=== PATIENT | male | born 1950 | race Caucasian/White ===

== ENCOUNTER 2020-01-13 11:01 | Emergency (ER) | payer OTHER, MEDICARE, SELFPAY ==
--- NOTE | ~2020-01-13 | XR_ITS ---
EXAMINATION: XR ribs RT 2V w CXR 2V DATE: 01/13/2020 12:10 INDICATION: Right rib pain. Fall. TECHNIQUE: Frontal and lateral views of the chest on 4 radiographs and 3 views of the right ribs were obtained. COMPARISON: None. FINDINGS: CHEST TWO VIEWS: The chest demonstrates clear lungs without pneumonia, pleural effusion, or pneumotho rax. The heart size is normal. There are prominent paracardial fat pads. RIGHT RIBS: There is no rib fracture. IMPRESSION: 1. No rib fracture. Reviewed, dictated and finalized at location A. IMPRESSION: 1. No rib fracture.
--- NOTE | 2020-01-13 11:28 | ED.GENADULT ---
HPI - General Adult General Chief complaint: Fall Stated complaint: fell right arm /rib pain Time Seen by Provider: 01/13/20 11:44 Source: patient Mode of arrival: ambulatory Limitations: no limitations History of Present Illness HPI narrative: 69-year-old male patient presents to the [facility] with complaints of right-sided rib pain after a fall yesterday. [place] that he normally uses a cane to ambulate and states that he was reaching down and accidentally fell onto his right side. Patient denies falling on any types of rocks or logs which is hit the hard ground. Denies hitting his head or loss of consciousness. Patient states he has been taking ibuprofen for his pain. Patient does have history of type 2 diabetes. Patient states it does hurt worse when taking a deep breath in. Patient denies any smoking or lung disease. Related Data Allergies Allergy/AdvReac Type Severity Reaction Status Date / Time codeine AdvReac Nausea and Verified 01/13/20 11:55 Vomiting Review of Systems Review of Systems: Narrative: CONSTITUTIONAL: Denies fever, chills, or sweats. EYES: Denies visual changes, redness, or discharge. ENT: Denies rhinorrhea, congestion, sore throat, or otalgia. CARDIOVASCULAR: Denies chest pain, palpitations, or edema. RESPIRATORY: Denies cough or dyspnea. Positive right-sided rib pain with pain on inspiration GASTROINTESTINAL: Denies abdominal pain, nausea, vomiting, or diarrhea. GENITOURINARY: Denies dysuria or hematuria. SKIN: Denies rash or itching. MUSCULOSKELETAL: Denies back pain, joint pain, or myalgia. NEUROLOGIC: Denies headache, numbness, or weakness. PSYCHIATRIC: Denies anxiety or depression. PMFSH Past Medical History Medical History (Updated 01/13/20 @ 12:23 by JOHN Sexton) Type 2 diabetes mellitus Social History Social History Gender identity (if verbalized by the patient): Male Comments At the time of my signature I agree with nursing past medical history, surgical, social, and family history. There is no relevant family history pertinent to the presenting complaint. Exam Narrative: Exam Narrative: GENERAL: Well-appearing, well-nourished, and in no acute distress. HEAD: Normocephalic, atraumatic. EYES: PERRLA and EOMI. ENT: Nares clear, no rhinorrhea or epistaxis. Mucous membranes moist. NECK: Supple. No lymphadenopathy CHEST: Clear to auscultation. No respiratory distress. No ecchymosis or notable trauma noted to the skin of the right side of the chest. Patient does have tenderness on palpation to the 6/7 rib area on the right side under the right breast. HEART: Regular rate and rhythm. No murmur heard. Normal peripheral pulses. ABDOMEN: Soft, nontender, nondistended, normal active bowel sounds. EXTREMITIES: Normal range of motion. No edema. SKIN: Warm, dry, no rash. NEURO: No focal deficits. Alert and oriented x3. Course Reevaluation(s) Reevaluation #1: Reevaluated patient after his x-ray resulted. Discussed with him that the x-ray is negative for any rib fractures, pneumothorax is or pneumonia. Discussed with patient most likely this is some type of musculoskeletal pain to the right side of the rib area from his fall yesterday. Discussed with patient he can continue to take Tylenol and ibuprofen as needed for pain and would encourage ice and heat to the area to help with the pain as well. Discussed with patient showed him how to use a pillow to brace the rib area for deep breathing exercises as well as any coughing sneezing or laughing. Discussed with patient if he develops low-grade fevers, cough, worsening chest pain or shortness of breath I would advise him to follow-up with his primary doctor or go the ER for further evaluation and treatment. Patient verbalized understanding of this denies any other questions or concerns at this time. Date: 01/13/20 Time:
[2020-01-13 11:38] VITALS: BP 146/71; PULSE 93; RESP 20; TEMP 36.5; O2SAT 97
--- NOTE | 2020-01-13 11:55 | PC.NURSE ---
1155- Contacted Screen for medication list, as pt states he always uses the [facility] on [address] and takes8 or 9 meds does not know the name of his medications,, RpH stated he has not had anything filled since 2019.
== END 2020-01-13 12:25 | disposition home or self-care (01) ==
PROVIDERS: Emergency Provider Nurse Practitioner Family
DX: R07.81 Pleurodynia (principal); E11.9 Type 2 diabetes mellitus without complications
CPT/HCPCS: 71046; 71100; 99213; G0463